=== PATIENT | male | born 1995 | race African-American/Black ===

== ENCOUNTER 2016-07-07 07:36 | Inpatient (IN) | payer OTHER ==
--- NOTE | ~2016-07-07 | HP ---
Unit #: [id number] #: [id number] Patient: ROSSY WHITEHEAD [id number] [place] [address] [id number] MR#: [id number] NAME: ROSSY WHITEHEAD. ROOM: P184 Age: 21 Sex: M Admission Date: 07/07/2016 : 1995 Attending Physician: Garrett Loya M.D. Admitting Physician: Garrett Loya M.D. Primary Care Physician: Primary Care Physician No HISTORY AND PHYSICAL HISTORY OF PRESENT ILLNESS Rossy is a 21 year old admitted to [facility] with depression. PAST MEDICAL HISTORY 1. Positive HIV. He is no longer involved in the [facility]. 2. Seizure disorder. 3. History of genital warts. PAST SURGICAL HISTORY T and A. ALLERGIES Wellbutrin. SOCIAL HISTORY Smokes 1 pack per day. Drinks alcohol on occasion. Admits to using marijuana frequently. FAMILY HISTORY Medically noncontributory. REVIEW OF SYSTEMS CONSTITUTIONAL: No fever or chills. HEENT: Denies any sore throat, ear pain or runny nose. CARDIOVASCULAR: Denies chest pain, irregular heart rhythm or palpitations. CHEST: Denies shortness of breath or cough. No hemoptysis. GASTROINTESTINAL: Denies nausea, vomiting, diarrhea or chronic constipation. ENDOCRINE: Denies history of increased thirst or urination. No recent significant weight loss or gain. GENITOURINARY: Denies dysuria, frequency, or hematuria. SKIN: Denies any rashes. HEMATOLOGIC: Denies history of increased bleeding or bruising. MUSCULOSKELETAL: Denies any hot, swollen joints. No generalized muscle pain. NEUROLOGIC: Denies problems with vision or speech. No frequent, severe headaches. No numbness, tingling or weakness in any extremities. Denies loss of bladder or bowel control. CURRENT MEDICATIONS 1. Zyprexa 5 mg q.h.s. 2. Keppra 500 mg b.i.d. 3. Detox protocol. Unit #: [id number] #: [id number] Patient: ROSSY WHITEHEAD PHYSICAL EXAMINATION GENERAL: Alert, well-nourished, in no apparent distress. VITAL SIGNS: Blood pressure 100/74, heart rate 80, respirations 16, temperature 98.6. WEIGHT: 138. HEIGHT: 5 feet 7 inches. SKIN: Warm and dry without rash or lesion. HEENT: Normocephalic. TMs not viewed. Oral and nasal passages clear. Conjunctivae clear. PERRLA. EOMs intact. NECK: Supple without lymphadenopathy or thyromegaly. HEART: Regular rate and rhythm without murmur. LUNGS: Clear. ABDOMEN: Soft, nontender. : Not done. EXTREMITIES: No evidence of cyanosis, clubbing or edema. Moves all without focal deficit. NEUROLOGICAL: Grossly within normal limits. Cranial Nerves: II: Visual salgado are intact. III, IV AND : Extraocular movements are intact. Pupils are equal, round and reactive to light. V: Facial sensation is grossly normal. VII: Facial movements and expression are normal. VIII: Auditory acuity grossly intact. IX, X: Uvula is midline. Phonation is normal. XI: Patient shrugs shoulders and turns head normally. XII: Tongue protrudes in the midline. Sensory and Motor Function: Sensory and motor sensation is grossly normal. Motor: moves all extremities well. Coordination: Gait is normal. Deep Tendon Reflexes: Intact. IMPRESSION Psychiatric admission. RECOMMENDATIONS PSYCHIATRIC: Per psychiatrist. MEDICAL: 1. See no contraindications to participate in facility's activities. 2. Continue Kera. 3. Patient is encouraged to reconnect with the [facility]. MEDICAL PROGNOSIS Good. MEDICAL CONDITION Stable. Dictated by... Jessy Curtis P.A.-C. for Marianne Amin/marixa TD: 07/07/2016 17:56 JOB #: [id number] Unit #: [id number] #: [id number] Patient: ROSSY WHITEHEAD HISTORY AND PHYSICAL X Jessy Curtis X HISTORY AND PHYSICAL
--- NOTE | ~2016-07-07 | DS ---
Unit #: [id number] #: [id number] Patient: KAILASH WHITEHEAD [id number] [place] [address] [id number] MR#: [id number] NAME: KAILASH WHITEHEAD. ROOM: P184 Age: 21 Sex: M Admission Date: 07/07/2016 : 1995 Discharge Date: 07/09/2016 Attending Physician: Garrett Loya M.D. Primary Care Physician: Primary Care Physician No DISCHARGE SUMMARY REASON FOR ADMISSION The patient is a 21-year-old male, admitted following a polypharmacy and alcohol ingestion. HOSPITAL COURSE The patient was admitted to the [facility] unit and placed on suicide precautions. He was continued only on previously prescribed Zyprexa and Keppra, and was watched for signs or symptoms of withdrawal none of which occurred and the patient expressed contrition over the ensuing hospitalization on 07/08/2016, requesting discharge on that date, he was observed for another 24 hours. During which time, he exhibited little in the way of signs or symptoms of withdrawal and continued to consistently deny suicidal ideation. As per his request, discharge was ordered on 07/09/2016. FINAL DIAGNOSES Alcohol use disorder; cannabis use disorder; cocaine use disorder; sedative hypnotic use disorder; mood disorder, unspecified. Human immunodeficiency virus, positive and seizure disorder. DISPOSITION ON DISCHARGE The patient is discharged on the following medications: Zyprexa 5 mg at h.s. for mood stabilization and Keppra 500 mg b.i.d. for seizure disorder. DISCHARGE INSTRUCTIONS No dietary or physical restrictions were placed upon the patient at the time of discharge. FOLLOWUP Followup will take place through the auspices of community mental health resources. PROGNOSIS The patient's prognosis is considered fair. Dictated by... Garrett Loya M.D. CB/clare TD: 07/10/2016 05:28 JOB #: [id number] Unit #: [id number] #: [id number] Patient: KAILASH WHITEHEAD DISCHARGE SUMMARY X Garrett Loya MD X DISCHARGE SUMMARY
--- NOTE | ~2016-07-07 | PA ---
Unit #: [id number] #: [id number] Patient: KAILASH WHITEHEAD [id number] [place] [address] [id number] MR#: [id number] NAME: KAILASH WHITEHEAD. ROOM: P184 Age: 21 Sex: M Admission Date: 07/07/2016 : 1995 Date of Assessment: 07/07/2016 Attending Physician: Garrett Loya M.D. Admitting Physician: Garrett Loya M.D. Primary Care Physician: Primary Care Physician No PSYCHIATRIC ASSESSMENT IDENTIFYING INFORMATION The patient is a 21-year-old male admitted following a polypharmacy and alcohol overdose. INFORMANT(S) Patient. RELIABILITY Fair. CHIEF COMPLAINT I overdosed. HISTORY OF PRESENT ILLNESS The patient is a 21-year-old male admitted after an ingestion of Xanax, Klonopin, Ambien and alcohol. The patient was found by his aunt and EMS took the patient to [facility]. The patient reports feeling depressed and suicidal without any specific stressor. He had recently moved to [place] in hopes of "getting his life back together" but while there required psychiatric hospitalization. He has not filled psychiatric prescriptions in [place] in some time. He claims to be prescribed Ambien, Klonopin, Percocet, Keppra and Zyprexa. He has been previously under the care of Dr. Westbrook at this facility. He suffers from HIV but is currently on no antiretroviral medication. For a more complete history of present illness, please refer to previous dictated notes. PAST PSYCHIATRIC HISTORY Reviewed, no changes. FAMILY HISTORY/SOCIAL HISTORY Reviewed, no changes. MEDICAL HISTORY Reviewed, no changes. MEDICATION HISTORY The patient's currently claimed medications include Ambien, Klonopin, Percocet, Keppra and Zyprexa. He is no longer taking Truvada which he had taken previously for HIV. ALLERGIES Wellbutrin, Flexeril. Unit #: [id number] #: [id number] Patient: KAILASH WHITEHEAD MENTAL STATUS EXAM At this time reveals the patient to be a thin, male appearing stated age. He is in no apparent physical distress at the time of examination. He is awake, alert, oriented in all spheres. His mood is dysphoric. His affect constricted. Speech is generally relevant and coherent. There are no gross deficits in memory or cognition noted. Intelligence is judged to be in the average range based on fund of knowledge. The patient is cooperative throughout the interview. He is currently endorsing positive suicidal ideation. He denies homicidal ideation. He denies any psychotic symptoms. His judgement and insight appear to be somewhat impaired. ASSETS AND LIABILITIES Patient's assets to be assessed. Liabilities, ongoing substance use, poor compliance with treatment, possible characterologic issues. ADMITTING DIAGNOSES 1. Alcohol use disorder. 2. Cocaine use disorder. 3. Cannabis use disorder. 4. Sedative/hypnotic use disorder. 5. Mood disorder, unspecified. 6. HIV positive. PSYCHIATRIC PLAN/TREATMENT GOALS The patient remains hospitalized for safety and stabilization. We will go ahead and restart Keppra and Zyprexa. Discontinuing Percocet, Klonopin and Ambien for reasons which should be obvious given the patient's extensive substance abuse history. Routine detoxification protocol for alcohol and benzodiazepines has been initiated. ESTIMATED LENGTH OF STAY Five to seven days with followup to take place through the auspices of community mental health resources. Dictated by... Garrett Loya M.D. SIDNEY/marixa TD: 07/07/2016 15:31 JOB #: [id number] PSYCHIATRIC ASSESSMENT X Garrett Loya MD X PSYCHIATRIC ASSESSMENT
--- NOTE | ~2016-07-07 | A ---
[facility] Nutrition Therapy DATE: 07/09/16 Patient: MEJIACALDERON Cerda CHARLEY Physician: JOJO Address: [address] [place] [address] Room/Bed: [address], Zip: [place] [address] Admit Date: 07/07/16 Date of : [birth year] Height: 5 7 Weight: [phone] NUTRITIONAL ASSESSMENT: REASON: NUTRITIONAL RISK POINT- UNINTENTIONAL WEIGHT LOSS PATIENT ADMITTED FOR DEPRESSION AND OVERDOSE PMH: HIV, SEIZURE D/O Anthropometrics: HT: 5'7", WT: 138#, BMI: 21.6, %IBW: 93 Labs: NO LABS AVAILABLE Meds: ZYPREXA, KEPPRA, DETOX PROTOCOL Assessment: CHART REVIEWED, EVENTS NOTED. PATIENT IS A 21 Y/O MALE ADMITTED FOR DEPRESISON AND OVERDOSE. PATIENT IS CURRENTLY UNEMPLOYED, LIVES WITH AUNT AND BOYFRIEND, SMOKES 1 PPD, HAS DAILY USE OF ETOH, PERCOCETS, CANNABIS, AND BENZOS, AND HAS FREQUENT COCAINE USE. PATIENT STATED A FAIR APPETITE WITH UNKNOWN WEIGHT CHANGES. NURSING REPORTED A FAIR APPETITE. PATIENT HAS BEEN NON-COMPLIANT WITH MEDICATIONS PRIOR TO ADMIT AND HAS A HX OF INPATIENT PSYCH AND CHEMICAL DEPENDENCY TREATMENT. PATIENT IS ON A REGULAR DIET WITH NO CAFFEINE AND LARGE PORTION ENTREES. CURRENT PSYCH MEDS MAY CAUSE AN INCREASE IN WEIGHT AND APPETITE. PATIENT'S BMI IS WITHIN A HEALTHY RANGE AND HE IS 93% OF HIS IBW. Dx: NO NUTRITION DX Intervention: 1. REGULAR DIET WITH NO CAFFEINE, 2. LARGE PORTION ENTREES, 3. MEDS PER MD, 4. DETOX, 5. PSYCH Monitoring, Evaluation and Goals: 1. ADEQUATE PO INTAKES >50% OF MEALS 2. PREVENT, CORRECT MICRO/MACRO NUTRIENT DEFICIENCIES MONITOR: WEIGHTS, LABS, PO/FLUID INTAKES Recommendations: 1. CONTINUE REGULAR DIET WITH NO CAFFEINE AND LARGE PORTION ENTREES TOLERATED 2. ENCOURAGE ADEQUATE PO AND FLUID INTAKES RD TO F/U PER PROTOCOL AND PRN R/T PATIENT NOT AT NUTRITIONAL RISK ATT [facility] Nutrition Therapy DATE: 07/09/16 Patient: NATALIEBLAYNE Cerda CHARLEY Physician: JOJO Address: [address] [place] [address] Room/Bed: [address], Zip: [place] [address] Admit Date: 07/07/16 Date of : [birth year] Height: 5 7 Weight: [phone] Respectfully, BISHOP MOSS RD, LD [facility] cc: client file
--- NOTE | ~2016-07-07 | PN ---
Unit #: [id number] #: [id number] Patient: KAILASH WHITEHEAD [id number] [facility] [address] [place] [address] [id number] I MR#: [id number] NAME: KAILASH WHITEHEAD. ROOM: P184 Age: 21 Sex: M Admission Date: 07/07/2016 : 1995 Attending Physician: Garrett Loya M.D. Admitting Physician: Garrett Loya M.D. Primary Care Physician: Primary Care Physician Lyla PERRY PROGRESS NOTES DATE 07/08/2016 DISCUSSION The patient is brighter today and reports appropriate contrition over events leading to hospitalization. He is currently denying suicidal ideation. Should he sustain progress, discharge will likely take place tomorrow. Dictated by... Garrett Loya M.D. CB/marixa TD: 07/08/2016 16:22 JOB #: [id number] VICKY PROGRESS NOTES X Garrett Loya MD PROGRESS NOTE
[~2016-07-07 07:36] MED LIST: KEPPRA500 MG PO; NORVIR100 M1 PO; PREZISTA800 MG PO; TRUVADA 200 MG1 EACH PO
== END 2016-07-09 17:00 | disposition home or self-care (01) | DRG 896 ==
LOC: P1E 07:36
PROC: HZ2ZZZZ Detoxification Services for Substance Abuse Treatment (ICD-10-PCS; principal; 2016-07-07)
DX: F10.20 Alcohol dependence, uncomplicated (principal); B20 Human immunodeficiency virus [HIV] disease; F14.20 Cocaine dependence, uncomplicated; F13.20 Sedative, hypnotic or anxiolytic dependence, uncomplicated; F39 Unspecified mood [affective] disorder; F17.200 Nicotine dependence, unspecified, uncomplicated; G40.909 Epilepsy, unspecified, not intractable, without status epilepticus